=== PATIENT | male | born 1950 | race African-American/Black ===

== ENCOUNTER 2018-10-09 13:32 | Inpatient (IN) | payer MEDICAID ==
[~2018-10-09] VITALS: Ht 162.6 cm; Wt 61.2 kg
[2018-10-09] MEDS ORDERED: SODIUM CHLORIDE 0.9% 1,000 ML IV ONE (13:44)
[2018-10-09] MEDS ORDERED: ONDANSETRON HCL 4MG/2ML INJ IV ONE (13:45)
[2018-10-09 14:54] LABS: BASOPHILS % 0.3 % (0.0-2.0); EOSINOPHILS % 0.4 % (0.0-5.0); HEMATOCRIT. 37.1 % (42.0-52.0); HEMOGLOBIN. 12.7 g/dL (14.0-18.0); LYMPHOCYTES % 31.2 % (20.0-50.0); MEAN CORPUSCULAR HEMOGLOBIN 33.8 pg (28.0-32.0); MEAN CORPUSCULAR VOLUME 98.7 fL (80.0-94.0); MEAN PLATELET VOLUME 10.1 fl (7.4-10.4); MONOCYTES % 7.7 % (2.0-8.0); NEUTROPHILS % 60.4 % (40.0-76.0); PLATELET 169 x1000/uL (130-400); RED BLOOD CELL COUNT 3.76 mill/uL (4.7-6.1); RED CELL DISTRIBUTION WIDTH 13.1 % (11.6-14.6)
[2018-10-09 15:01] LABS: PARTIAL THROMBOPLASTIN TIME 24.8 sec (23.4-31.0); PROTHROMBIN TIME 10.7 sec (9.6-11.0)
[2018-10-09 15:03] LABS: CHLORIDE 104 mEq/L (98-107)
[2018-10-09 16:00] VITALS: BP 106/67
[2018-10-09] MEDS ORDERED: SODIUM CHLORIDE 0.45% 1,000 ML IV SCH (18:13)
[2018-10-09] MEDS ORDERED: MAGNESIUM/ALUMINUM HYDROXIDE/SIMETHICONE 30ML UDC PO PRN (18:15)
[2018-10-09] MEDS ORDERED: ONDANSETRON HCL 4MG/2ML INJ IV PRN (18:15)
[2018-10-09] MEDS ORDERED: ACETAMINOPHEN 325MG TABLET PO PRN (18:15)
[2018-10-09] MEDS ORDERED: HYDROCODONE/ACETAMINOPHEN 5/325MG TABLET PO PRN (18:15)
[2018-10-09] MEDS ORDERED: DOCUSATE SODIUM 100MG CAPSULE PO PRN (18:15)
[2018-10-09] MEDS ORDERED: GUAIFENESIN 200MG/10ML SUGAR FREE UDC PO PRN (18:15)
[2018-10-09] MEDS ORDERED: DIPHENHYDRAMINE 50MG/ML VIAL IV PRN (18:15)
[2018-10-09] MEDS ORDERED: ACETAMINOPHEN 650MG SUPP PR PRN (18:15)
[2018-10-09] MEDS ORDERED: ACETAMINOPHEN 650MG/20.3ML UDC GT PRN (18:15)
[2018-10-09] MEDS ORDERED: NA PHOS,M-B/NA PHOS,DI-BA ENEMA 118ML PR PRN (18:15)
[2018-10-09] MEDS ORDERED: DEXTROSE 50% WATER 50ML SYRINGE IV PRN (18:15)
[2018-10-09] MEDS ORDERED: CLONIDINE 0.1MG TABLET PO PRN (18:15)
[2018-10-09] MEDS ORDERED: IPRATROPIUM/ALBUTEROL 0.5-3(2.5)MG/3ML NEB INH PRN (18:15)
[2018-10-09] MEDS ORDERED: METF-414 PO (18:21)
[2018-10-09] MEDS ORDERED: ASPI-1393 PO (18:21)
[2018-10-09 18:37] VITALS: BP 106/56
[2018-10-09 20:00] VITALS: BP 119/52
[2018-10-09] MEDS: INSULIN LISPRO 100 UNITS/ML SUBCUT SCH (20:40)
[2018-10-09] MEDS: BLOOD SUGAR DIAGNOSTIC STRIP TEST SCH (20:41)
[2018-10-09] MEDS: SODIUM CHLORIDE 0.9% INJ 3ML FLUSH IVF SCH (20:41)
[2018-10-10] VITALS: BP 119/53
[2018-10-10 00:52] LABS: CREATINE KINASE 446 IU/L (39-308)
[2018-10-10 00:53] LABS: CREATINE KINASE MB FRACTION 3.6 ng/mL (0.5-3.6)
[2018-10-10 04:00] VITALS: BP 124/57
[2018-10-10] MEDS ORDERED: MULT-1146 PO (05:45)
[2018-10-10] MEDS ORDERED: ZET10 PO (05:45)
[2018-10-10] MEDS ORDERED: FURO20TA4 PO (05:45)
[2018-10-10] MEDS ORDERED: AMLO5TAB88 PO (05:45)
[2018-10-10] MEDS ORDERED: TAMS-11 PO (05:45)
[2018-10-10] MEDS ORDERED: LOSA25TA26 PO (05:45)
[2018-10-10] MEDS ORDERED: INSU100V3 SUBCUT ×2 (06:17)
[2018-10-10] MEDS ORDERED: NPH,100V SQ ×2 (06:17)
[2018-10-10] MEDS: SODIUM CHLORIDE 0.9% INJ 3ML FLUSH IVF SCH ×2 (06:38→13:58)
[2018-10-10] MEDS: BLOOD SUGAR DIAGNOSTIC STRIP TEST SCH ×3 (07:11→17:40)
[2018-10-10 08:00] VITALS: BP 137/60
[2018-10-10] MEDS: INSULIN LISPRO 100 UNITS/ML SUBCUT SCH ×2 (08:06→13:11)
[2018-10-10] MEDS ORDERED: TAMSULOSIN HCL 0.4MG SR CAPSULE PO SCH (11:30)
[2018-10-10] MEDS ORDERED: EZETIMIBE 10MG TABLET PO SCH (11:30)
[2018-10-10 12:00] VITALS: BP 150/69
[2018-10-10 14:14] LABS: CLARITY URINE CLEAR (CLEAR); COLOR URINE YELLOW (YELLOW); KETONES URINE NEGATIVE (NEGATIVE); LEUKOCYTE ESTERASE URINE NEGATIVE (NEGATIVE); NITRITE URINE NEGATIVE (NEGATIVE); OCCULT BLOOD URINE NEGATIVE (NEGATIVE); PH URINE 5.5 (4.5-8.0); PROTEIN URINE NEGATIVE (NEGATIVE); SPECIFIC GRAVITY URINE 1.018 (1.005-1.030); UROBILINOGEN URINE 0.2 E.U./dL (0.2-1.0)
[2018-10-10 14:25] LABS: *AMPHETAMINES SCREEN URINE NEGATIVE (NEGATIVE); *BARBITURATES SCREEN URINE NEGATIVE (NEGATIVE); *BENZODIAZEPINES SCREEN URINE NEGATIVE (NEGATIVE); *COCAINE SCREEN URINE NEGATIVE (NEGATIVE)
[2018-10-10 14:26] LABS: CANNABINOID URINE SCREEN NEGATIVE (NEGATIVE); METHADONE URINE SCREEN NEGATIVE (NEGATIVE); OPIATES URINE SCREEN NEGATIVE (NEGATIVE); PHENCYCLIDINE URINE SCREEN NEGATIVE (NEGATIVE)
[2018-10-10 16:00] VITALS: BP_SYST 145; BP_SYST 146; BP_SYST 148; BP_DIAS 64; BP_DIAS 68; BP_DIAS 69
[2018-10-10 17:37] VITALS: BP 145/64
[2018-10-10 17:41] LABS: BASOPHILS % 0.2 % (0.0-2.0); EOSINOPHILS % 0.3 % (0.0-5.0); HEMATOCRIT. 37.3 % (42.0-52.0); HEMOGLOBIN. 12.3 g/dL (14.0-18.0); LYMPHOCYTES % 12.9 % (20.0-50.0); MEAN CORPUSCULAR HEMOGLOBIN 33.1 pg (28.0-32.0); MEAN CORPUSCULAR VOLUME 100.4 fL (80.0-94.0); MEAN PLATELET VOLUME 10.7 fl (7.4-10.4); MONOCYTES % 6.2 % (2.0-8.0); NEUTROPHILS % 80.4 % (40.0-76.0); PLATELET 137 x1000/uL (130-400); RED BLOOD CELL COUNT 3.71 mill/uL (4.7-6.1); RED CELL DISTRIBUTION WIDTH 13.4 % (11.6-14.6)
[2018-10-10 17:52] LABS: CHLORIDE 101 mEq/L (98-107)
[2018-10-10 18:01] LABS: LDL CHOLESTEROL 82 mg/dL (5-100)
[2018-10-10 18:02] LABS: CREATINE KINASE 789 IU/L (39-308); CREATINE KINASE MB FRACTION 3.7 ng/mL (0.5-3.6); HDL CHOLESTEROL 38 mg/dL (40-59)
[2018-10-10] MEDS ORDERED: AMLODIPINE 5MG TABLET PO SCH (21:00)
[2018-10-11] MEDS ORDERED: ASPIRIN 81MG TABLET PO SCH (09:00)
== END 2018-10-10 18:10 | disposition home or self-care (01) | DRG 201 ==
LOC: ER 13:32 → 7WST 15:38 → EDBEDREQ 15:42 → ENRESERV 15:57
PROVIDERS: ADMIT Family Medicine; ATTEND Family Medicine
DX: R00.1 Bradycardia, unspecified (principal); I11.0 Hypertensive heart disease with heart failure; I50.9 Heart failure, unspecified; R11.2 Nausea with vomiting, unspecified; E86.0 Dehydration; D64.9 Anemia, unspecified; E11.9 Type 2 diabetes mellitus without complications; R32 Unspecified urinary incontinence; Z86.73 Personal history of transient ischemic attack (TIA), and cerebral infarction without residual deficits
CPT/HCPCS: 36415; 71045; 80061; 80305; 82550; 82553; 82962; 83036; 83735; 83880; 84484; 93005; 96374; 97162; 99285; J1815; J2405; J7030

== ENCOUNTER 2018-10-24 22:14 | Emergency (ER) | payer MEDICAID ==
[~2018-10-24] VITALS: Ht 162.6 cm; Wt 59.0 kg
[~2018-10-24 22:14] MED LIST: AMLO5TAB88 PO; ASPI-1393 PO; FURO20TA4 PO; INSU100V3 SUBCUT; LOSA25TA26 PO; MULT-1146 PO; NPH,100V SQ; TAMS-11 PO; ZET10 PO
[2018-10-25] MEDS ORDERED: ASPIRIN 81MG TABLET PO ONE (01:00)
[2018-10-25 01:29] LABS: BASOPHILS % 0.6 % (0.0-2.0); EOSINOPHILS % 0.2 % (0.0-5.0); HEMATOCRIT. 35.4 % (42.0-52.0); LYMPHOCYTES % 17.3 % (20.0-50.0); MEAN CORPUSCULAR HEMOGLOBIN 33.5 pg (28.0-32.0); MEAN CORPUSCULAR VOLUME 99.3 fL (80.0-94.0); MEAN PLATELET VOLUME 9.1 fl (7.4-10.4); MONOCYTES % 9.3 % (2.0-8.0); NEUTROPHILS % 72.6 % (40.0-76.0); PLATELET 244 x1000/uL (130-400); RED BLOOD CELL COUNT 3.57 mill/uL (4.7-6.1)
[2018-10-25 01:34] LABS: CHLORIDE 99 mEq/L (98-107)
[2018-10-25 02:00] LABS: D-DIMER 0.79 mg/L FEU (<0.50); PROTHROMBIN TIME 10.7 sec (9.6-11.0)
[2018-10-25] MEDS ORDERED: HYDROCODONE/ACETAMINOPHEN 5/325MG TABLET PO ONE (06:30)
[2018-10-25 06:47] VITALS: BP 155/80
[2018-10-25] MEDS ORDERED: IOHEXOL-350 100 ML BOTTLE ONE (07:22)
== END 2018-10-25 06:49 | disposition home or self-care (01) ==
LOC: ER 22:14
DX: R07.89 Other chest pain (principal); E11.9 Type 2 diabetes mellitus without complications; Z79.4 Long term (current) use of insulin; Z79.82 Long term (current) use of aspirin; Z79.899 Other long term (current) drug therapy
CPT/HCPCS: 36415; 71045; 71275; 80053; 83880; 84484; 85025; 85379; 85610; 93005; 99284; Q9967

== ENCOUNTER 2018-12-19 14:00 | Emergency (ER) | payer MEDICAID ==
[~2018-12-19] VITALS: Ht 175.3 cm; Wt 65.0 kg
[~2018-12-19 14:00] MED LIST changes: +EZET10TA13 PO; -ZET10 PO
[2018-12-19] MEDS ORDERED: SODIUM CHLORIDE 0.9% 1,000 ML IV ONE (15:37)
[2018-12-19] MEDS ORDERED: KETOROLAC 30MG/ML VIAL IV STA (15:37)
[2018-12-19 17:11] LABS: CHLORIDE 101 mEq/L (98-107)
[2018-12-19 17:45] LABS: BASOPHILS % 0.6 % (0.0-2.0); HEMATOCRIT. 33.9 % (42.0-52.0); HEMOGLOBIN. 11.4 g/dL (14.0-18.0); LYMPHOCYTES % 51.2 % (20.0-50.0); MEAN CORPUSCULAR HEMOGLOBIN 32.3 pg (28.0-32.0); MEAN CORPUSCULAR VOLUME 96.1 fL (80.0-94.0); MEAN PLATELET VOLUME 8.9 fl (7.4-10.4); NEUTROPHILS % 37.2 % (40.0-76.0); PLATELET 167 x1000/uL (130-400); RED BLOOD CELL COUNT 3.53 mill/uL (4.7-6.1); RED CELL DISTRIBUTION WIDTH 15.3 % (11.6-14.6)
[2018-12-19 18:40] VITALS: BP 147/69
== END 2018-12-19 18:40 | disposition home or self-care (01) ==
LOC: ER 14:06
DX: R51 Headache (principal); E11.9 Type 2 diabetes mellitus without complications; Z79.4 Long term (current) use of insulin; Z79.82 Long term (current) use of aspirin
CPT/HCPCS: 36415; 70450; 80053; 85025; 96361; 96374; 99284; J1885; J7030

== ENCOUNTER 2019-02-03 16:15 | Inpatient (IN) | payer MEDICAID ==
[~2019-02-03] VITALS: Ht 172.7 cm; Wt 71.7 kg
[2019-02-03] MEDS ORDERED: SODIUM CHLORIDE 0.9% 1,000 ML IV ONE (16:50)
[2019-02-03] MEDS ORDERED: ONDANSETRON HCL 4MG/2ML INJ IV STA (16:50)
[2019-02-03] MEDS ORDERED: DEXTROSE 50% WATER 50ML SYRINGE IV ONE ×4 (17:09→19:15)
[2019-02-03] MEDS ORDERED: DEXTROSE 10% WATER 500 ML IV ONE (17:15)
[2019-02-03 17:22] LABS: CHLORIDE 104 mEq/L (98-107)
[2019-02-03 17:24] LABS: BASOPHILS % 0.4 % (0.0-2.0); EOSINOPHILS % 0.8 % (0.0-5.0); HEMATOCRIT. 37.9 % (42.0-52.0); HEMOGLOBIN. 12.8 g/dL (14.0-18.0); LYMPHOCYTES % 27.3 % (20.0-50.0); MEAN CORPUSCULAR HEMOGLOBIN 32.9 pg (28.0-32.0); MEAN CORPUSCULAR VOLUME 97.7 fL (80.0-94.0); MEAN PLATELET VOLUME 9.6 fl (7.4-10.4); NEUTROPHILS % 61.5 % (40.0-76.0); PLATELET 190 x1000/uL (130-400); RED BLOOD CELL COUNT 3.88 mill/uL (4.7-6.1); RED CELL DISTRIBUTION WIDTH 16.6 % (11.6-14.6)
[2019-02-03 17:26] LABS: ETHANOL BLOOD < 10 mg/dL
[2019-02-03 19:00] LABS: CLARITY URINE CLEAR (CLEAR); COLOR URINE YELLOW (YELLOW); KETONES URINE NEGATIVE (NEGATIVE); LEUKOCYTE ESTERASE URINE NEGATIVE (NEGATIVE); NITRITE URINE NEGATIVE (NEGATIVE); OCCULT BLOOD URINE NEGATIVE (NEGATIVE); PH URINE 7.5 (4.5-8.0); PROTEIN URINE TRACE (NEGATIVE); SPECIFIC GRAVITY URINE 1.015 (1.005-1.030); UROBILINOGEN URINE 0.2 E.U./dL (0.2-1.0)
[2019-02-03 19:08] LABS: *BARBITURATES SCREEN URINE NEGATIVE (NEGATIVE); *BENZODIAZEPINES SCREEN URINE NEGATIVE (NEGATIVE); *COCAINE SCREEN URINE NEGATIVE (NEGATIVE); METHADONE URINE SCREEN NEGATIVE (NEGATIVE)
[2019-02-03 19:09] LABS: *AMPHETAMINES SCREEN URINE NEGATIVE (NEGATIVE); CANNABINOID URINE SCREEN NEGATIVE (NEGATIVE); OPIATES URINE SCREEN NEGATIVE (NEGATIVE); PHENCYCLIDINE URINE SCREEN NEGATIVE (NEGATIVE)
[2019-02-03] MEDS: DEXT 5%/0.45% NACL 1000ML 1,000 ML IV SCH (20:01)
[2019-02-03] MEDS ORDERED: ACETAMINOPHEN 325MG TABLET PO PRN (20:15)
[2019-02-03] MEDS ORDERED: GUAIFENESIN 200MG/10ML SUGAR FREE UDC PO PRN (20:15)
[2019-02-03] MEDS ORDERED: KETOROLAC 15MG/ML VIAL IV PRN (20:15)
[2019-02-03] MEDS ORDERED: NITROGLYCERIN 0.4MG TABLET SL SL PRN (20:15)
[2019-02-03] MEDS ORDERED: DEXTROSE 50% WATER 50ML SYRINGE IV PRN (20:15)
[2019-02-03] MEDS ORDERED: IPRATROPIUM/ALBUTEROL 0.5-3(2.5)MG/3ML NEB NEB PRN (20:15)
[2019-02-03] MEDS ORDERED: DOCUSATE SODIUM 100MG CAPSULE PO PRN (20:15)
[2019-02-03] MEDS ORDERED: MAGNESIUM/ALUMINUM HYDROXIDE/SIMETHICONE 30ML UDC PO PRN (20:15)
[2019-02-03] MEDS ORDERED: ZOLPIDEM TARTRATE 5MG TABLET PO PRN (20:15)
[2019-02-03] MEDS ORDERED: CLONIDINE 0.1MG TABLET PO PRN (20:15)
[2019-02-03] MEDS ORDERED: ONDANSETRON HCL 4MG/2ML INJ IV PRN (20:15)
[2019-02-03] MEDS: BLOOD SUGAR DIAGNOSTIC STRIP TEST SCH (21:00)
[2019-02-03] MEDS: INSULIN LISPRO 100 UNITS/ML SUBCUT SCH (21:00)
[2019-02-03 22:11] LABS: VITAMIN B12 SERUM 1830 pg/mL (211-911)
[2019-02-03 22:43] LABS: FOLIC ACID (FOLATE) SERUM > 20.00 ng/mL (>5.38)
[2019-02-03 22:47] VITALS: BP 144/58
[2019-02-03 23:00] VITALS: BP 144/58
[2019-02-04] VITALS (10 sets, daily range): BP systolic 119–147; BP diastolic 64–99
[2019-02-04] MEDS: AMLODIPINE 10MG TABLET PO SCH ×2 (00:57→08:22)
[2019-02-04] MEDS: DEXT 5%/0.45% NACL 1000ML 1,000 ML IV SCH (07:00)
[2019-02-04] MEDS: BLOOD SUGAR DIAGNOSTIC STRIP TEST SCH ×3 (07:47→17:30)
[2019-02-04] MEDS: INSULIN LISPRO 100 UNITS/ML SUBCUT SCH ×3 (08:19→18:03)
[2019-02-04] MEDS ORDERED: ENOXAPARIN 40MG/0.4ML SYR SUBCUT SCH (09:00)
[2019-02-04] MEDS ORDERED: FAMOTIDINE 20MG TABLET PO SCH (09:00)
[2019-02-04] MEDS ORDERED: ASPIRIN 325MG EC TABLET PO SCH (09:00)
== END 2019-02-04 18:30 | disposition home or self-care (01) | DRG 420 ==
LOC: ER 16:24 → 5EST 21:21 → EDBEDREQSVC 21:23 → EDBEDREQ 21:23 → EDBEDREQTM 21:23 → ENRESERV 21:37
PROVIDERS: ADMIT Internal Medicine; ATTEND Internal Medicine
DX: E11.649 Type 2 diabetes mellitus with hypoglycemia without coma (principal); G93.41 Metabolic encephalopathy; I10 Essential (primary) hypertension; Z79.4 Long term (current) use of insulin; Z79.899 Other long term (current) drug therapy
CPT/HCPCS: 36415; 80305; 80307; 80320; 80329; 81003; 82140; 82607; 82746; 82962; 83036; 83605; 84443; 93005; 93970; 96365; 96376; 99285; J1650; J1815; J2405; J7030; G0480

== ENCOUNTER 2019-12-24 14:57 | Emergency (ER) | payer MEDICAID ==
[~2019-12-24] VITALS: Ht 157.5 cm; Wt 63.5 kg
[~2019-12-24 14:57] MED LIST changes: -ASPI-1393 PO; +ASPI-1497 PO; -INSU100V3 SUBCUT; -NPH,100V SQ
[2019-12-24 16:05] LABS: BASOPHILS % 0.4 % (0.0-2.0); EOSINOPHILS % 0.1 % (0.0-5.0); HEMATOCRIT. 40.7 % (42.0-52.0); HEMOGLOBIN. 13.8 g/dL (14.0-18.0); LYMPHOCYTES % 20.8 % (20.0-50.0); MEAN CORPUSCULAR HEMOGLOBIN 33.2 pg (28.0-32.0); MEAN CORPUSCULAR VOLUME 98.3 fL (80.0-94.0); MEAN PLATELET VOLUME 10.6 fl (7.4-10.4); MONOCYTES % 7.2 % (2.0-8.0); NEUTROPHILS % 71.5 % (40.0-76.0); PLATELET 143 x1000/uL (130-400); RED BLOOD CELL COUNT 4.15 mill/uL (4.7-6.1); RED CELL DISTRIBUTION WIDTH 13.6 % (11.6-14.6)
[2019-12-24 16:15] LABS: CHLORIDE 97 mEq/L (98-107)
[2019-12-24] MEDS ORDERED: ONDANSETRON HCL 4MG/2ML INJ IV STA (16:38)
[2019-12-24] MEDS ORDERED: MORPHINE SULFATE 4 MG/ML CPJ (NOT FOR IM USE) IV STA (16:38)
[2019-12-24] MEDS ORDERED: INSULIN REGULAR (HUMULIN R) 300UNITS/3ML SUBCUT ONE (16:45)
[2019-12-24] MEDS ORDERED: SODIUM CHLORIDE 0.9% 1,000 ML IV ONE (16:45)
[2019-12-24] MEDS ORDERED: AMLODIPINE 5MG TABLET PO ONE (18:00)
[2019-12-24 19:18] VITALS: BP 169/76
== END 2019-12-24 19:31 | disposition home or self-care (01) ==
LOC: ER 14:57
DX: R51 Headache (principal); I16.0 Hypertensive urgency; E11.65 Type 2 diabetes mellitus with hyperglycemia; Z79.899 Other long term (current) drug therapy; E11.9 Type 2 diabetes mellitus without complications
CPT/HCPCS: 36415; 70450; 71045; 80053; 82962; 85025; 93005; 96361; 96372; 96374; 96375; 99285; J1815; J2270; J2405; J7030